=== PATIENT | female | born 1975 ===

== ENCOUNTER 2019-03-31 15:40 | Emergency (ER) | payer SELFPAY ==
--- NOTE | 2019-03-31 15:56 | Event Note ---
ED Screening Note Date of service: 03/31/19 Time: 15:55 ED Screening Note: This is a 43 y.o. F. that presents to the ER with left flank pain for 1 month. PMH of kidney stones Current smoker LMP 03/17/2019 This initial assessment/diagnostic orders/clinical plan/treatment(s) is/are subject to change based on patients health status, clinical progression and re- assessment by fellow clinical providers in the ED. Further treatment and workup at subsequent clinical providers discretion. Patient/guardian urged not to elope from the ED as their condition may be serious if not clinically assessed and managed. Initial orders include: Labs and CT of abdomen pelvis
[2019-03-31 16:47] LABS: Basophils # (Auto) 0.1 K/mm3 (0.0-0.1); Basophils % (Auto) 0.8 % (0.0-1.8); Eosinophils # (Auto) 0.1 K/mm3 (0.0-0.4); Eosinophils % (Auto) 1.3 % (0.0-4.3); Hematocrit 41.2 % (30.3-42.9); Hemoglobin 13.7 gm/dl (10.1-14.3); Lymphocytes # (Auto) 3.3 K/mm3 (1.2-5.4); Lymphocytes % (Auto) 36.8 % (13.4-35.0); Mean Corpuscular HGB Conc 33 % (30-34); Mean Corpuscular Volume 94 fl (79-97); Monocytes # (Auto) 0.6 K/mm3 (0.0-0.8); Monocytes % (Auto) 6.5 % (0.0-7.3); Platelet Count 347 K/mm3 (140-440); Red Blood Count 4.39 M/mm3 (3.65-5.03)
[2019-03-31 17:10] LABS: Bilirubin,Urine NEG (Negative); Blood,Urine SM (Negative); Color,Urine Straw (Yellow); Mucus,Urine FEW /HPF; Protein,Urine <15 mg/dL mg/dL (Negative); Urobilinogen,Urine < 2.0 mg/dL (<2.0)
[2019-03-31 17:19] LABS: Alanine Aminotransferase 19 units/L (7-56); Albumin 4.3 g/dL (3.9-5); BUN/Creatinine Ratio 10; Blood Urea Nitrogen 5 mg/dL (7-17); Calcium 9.1 mg/dL (8.4-10.2); Hemolysis Index 25
--- NOTE | 2019-03-31 18:50 | Cat Scan Report ---
CT abdomen pelvis wo con INDICATION: Left flank pain. TECHNIQUE: All CT scans at this location are performed using the following dose modulation technique: Automated exposure control. Helical slices were obtained through the abdomen and pelvis. No contrast is adminis tered. COMPARISON: None available. FINDINGS: Abdomen: No acute abnormality is seen in the lung bases. No acute abnormality seen in the liver, sple en, pancreas, and adrenal glands. 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 There is a cystic structure in the mid right kidney which is half filled with stones. This could repr esent stones within cyst. This could represent a calyceal cyst or diverticulum partially filled with stones. There is no hydronephrosis. No ureteral calculi are seen. The appendix is unremarkable. The bowel is unremarkable. There is no obstruction, inflammation, or free air. Pelvis: There is no inflammatory change. There are no abnormal fluid collections. No adenopathy is se en. On review of bone windows, no acute osseous abnormalities are seen. IMPRESSION: 1. There is a 2 cm cystic structure in the right kidney which is half filled with stones. This could represent calyceal cyst or diverticulum partially filled with stones. There are no ureteral calculi. There is no hydronephrosis. There is no obstruction, inflammation, or free air. Signer Name: Micky Cantrell MD Signed: 03/31/2019 6:46 PM Workstation Name: [id number]
[2019-03-31] MEDS ORDERED: TORADOL IV ONE (19:41)
[2019-03-31] MEDS ORDERED: ZOFRAN IV ONE (19:41)
--- NOTE | 2019-03-31 19:46 | Emergency Department Report ---
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 presents for left flank pain x 1 month, pt has hx of renal stones, there is no dysuria , no hematuria, no fever or chills no n/v . Pain is described as 5/10 aching intermittent. pt is tolerating po intake without n/v , voiding without difficulty. MD Complaint: flank pain Onset/Timin -: month(s) Location: L flank Radiation: L flank Migration to: L flank Severity: moderate Severity scale (0 -10): 5 Quality: aching Consistency: intermittent Improves With: nothing Worsens With: nothing Associated Symptoms: denies: nausea, vomiting, diarrhea, fever, chills, dysuria, melena, hematuria - Related Data LMP (females 10-50): last week Previous Rx's Medication Instructions Recorded Last Taken Type Ketorolac [Toradol] 10 mg PO Q6H PRN #12 tablet 03/31/19 Unknown Rx Allergies Allergy/AdvReac Type Severity Reaction Status Date / Time No Known Allergies Allergy Unverified 03/31/19 15:40 ED Review of Systems ROS: Stated complaint: ABD PAIN Other details as noted in HPI Constitutional: denies: chills, fever Eyes: denies: eye pain, eye discharge, vision change ENT: denies: ear pain, throat pain Respiratory: denies: cough, shortness of breath, wheezing Cardiovascular: denies: chest pain, palpitations Endocrine: no symptoms reported Gastrointestinal: abdominal pain (flank pain ). denies: nausea, vomiting, diarrhea Genitourinary: denies: urgency, dysuria, discharge Musculoskeletal: back pain (left flank) Skin: denies: rash, lesions Neurological: denies: headache, weakness, paresthesias Psychiatric: denies: anxiety, depression Hematological/Lymphatic: denies: easy bleeding, easy bruising ED Past Medical Hx - Past Medical History Previous Medical History?: Yes Hx Kidney Stones: Yes - Surgical History Past Surgical History?: No - Social History Smoking Status: Current Every Day Smoker Substance Use Type: None - Medications Home Medications: Home Medications Medication Instructions Recorded Confirmed Last Taken Type Ketorolac [Toradol] 10 mg PO Q6H PRN #12 tablet 03/31/19 Unknown Rx ED Physical Exam - General Limitations: Language Barrier General appearance: alert, in no apparent distress - Head Head exam: Present: atraumatic, normocephalic - Eye Eye exam: Present: normal appearance, PERRL, EOMI Pupils: Present: normal accommodation - ENT ENT exam: Present: mucous membranes moist - Neck Neck exam: Present: normal inspection, full ROM. Absent: thyromegaly - Respiratory Respiratory exam: Present: normal lung sounds bilaterally. Absent: respiratory distress, wheezes, stridor, chest wall tenderness - Cardiovascular Cardiovascular Exam: Present: regular rate, normal rhythm, normal heart sounds. Absent: systolic murmur, diastolic murmur, rubs, gallop - GI/Abdominal GI/Abdominal exam: Present: soft, normal bowel sounds. Absent: distended, tenderness, guarding, rebound, rigid, bruit, hernia - Extremities Exam Extremities exam: Present: normal inspection, full ROM, normal capillary refill. Absent: tenderness, pedal edema - Back Exam Back exam: Present: normal inspection, full ROM. Absent: tenderness, CVA tenderness (R), CVA tenderness (L), muscle spasm, rash noted - Neurological Exam Neurological exam: Present: alert, oriented X3, CN II-XII intact, normal gait - Psychiatric Psychiatric exam: Present: normal affect, normal mood - Skin Skin exam: Present: warm, dry, intact, normal color. Absent: rash ED Course Vital Signs 03/31/19 15:44 Temperature 97.9 F Pulse Rate 78 Respiratory 18 Rate Blood Pressure 112/60 O2 Sat by Pulse 97 Oximetry ED Medical Decision Making - Lab Data Result diagrams: 03/31/19 16:11 03/31/19 16:11 Labs 03/31/19 03/31/19 03/31/19 16:11 16:11 16:11 WBC 8.9 RBC 4.39 Hgb 13.7 Hct 41.2 MCV 94 MCH 31 MCHC 33 RDW 15.0 Plt Count 347 Lymph % (Auto) 36.8 H Holmes % (Auto) 6.5 Eos % (Auto) 1.3 Baso % (Auto) 0.8 Lymph # 3.3 Holmes # 0.6 Eos # 0.1 Baso # 0.1 Seg Neutrophils % 54.6 Seg Neutrophils # 4.8 Sodium 141 Potassium 4.3 Chloride 107.1 H Carbon Dioxide 20 L Anion Gap 18 BUN 5 L Creatinine 0.5 L Estimated GFR > 60 BUN/Creatinine Ratio 10 Glucose 97 Calcium 9.1 Total Bilirubin 0.20 AST 18 ALT 19 Alkaline Phosphatase 64 Total Protein 6.8 Albumin 4.3 Albumin/Globulin Ratio 1.7 HCG, Qual Negative Urine Color Urine Turbidity Urine pH Ur Specific Goodman Urine Protein Urine Glucose (UA) Urine Ketones Urine Blood Urine Nitrite Urine Bilirubin Urine Urobilinogen Ur Leukocyte Esterase Urine WBC (Auto) Urine RBC (Auto) U Epithel Cells (Auto) Urine Mucus 03/31/19 16:30 WBC RBC Hgb Hct MCV MCH MCHC RDW Plt Count Lymph % (Auto) Holmes % (Auto) Eos % (Auto) Baso % (Auto) Lymph # Holmes # Eos # Baso # Seg Neutrophils % Seg Neutrophils # Sodium Potassium Chloride Carbon Dioxide Anion Gap BUN Creatinine Estimated GFR BUN/Creatinine Ratio Glucose Calcium Total Bilirubin AST ALT Alkaline Phosphatase Total Protein Albumin Albumin/Globulin Ratio HCG, Qual Urine Color Straw Urine Turbidity Clear Urine pH 8.0 H Ur Specific Goodman 1.003 Urine Protein <15 mg/dl Urine Glucose (UA) Neg Urine Ketones Neg Urine Blood Sm Urine Nitrite Neg Urine Bilirubin Neg Urine Urobilinogen < 2.0 Ur Leukocyte Esterase Neg Urine WBC (Auto) 1.0 Urine RBC (Auto) 4.0 U Epithel Cells (Auto) < 1.0 Urine Mucus Few - Radiology Data Radiology results: report reviewed, image reviewed Patient: AURY SULLIVAN MR#: [id number] : 1975 Acct:[id number] Age/Sex: 43 / F ADM Date: 03/31/19 Loc: ED Attending Dr: Ordering Physician: RENZO ARVIZU Date of Service: 03/31/19 Procedure(s): CT abdomen pelvis wo con Accession Number(s): [id number] cc: RENZO ARVIZU CT abdomen pelvis wo con INDICATION: Left flank pain. TECHNIQUE: All CT scans at this location are performed using the following dose modulation technique: Automated exposure control. Helical slices were obtained through the abdomen and pelvis. No contrast is administered. COMPARISON: None available. FINDINGS: Abdomen: No acute abnormality is seen in the lung bases. No acute abnormality seen in the liver, spleen, pancreas, and adrenal glands. 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 There is a cystic structure in the mid right kidney which is half filled with stones. This could represent stones within cyst. This could represent a calyceal cyst or diverticulum partially filled with stones. There is no hydronephrosis. No ureteral calculi are seen. The appendix is unremarkable. The bowel is unremarkable. There is no obstruction, inflammation, or free air. Pelvis: There is no inflammatory change. There are no abnormal fluid collections. No adenopathy is seen. On review of bone windows, no acute osseous abnormalities are seen. IMPRESSION: 1. There is a 2 cm cystic structure in the right kidney which is half filled with stones. This could represent calyceal cyst or diverticulum partially filled with stones. There are no ureteral calculi. There is no hydronephrosis. There is no obstruction, inflammation, or free air. Signer Name: Micky Cantrell MD Signed: 03/31/2019 6:46 PM Workstation Name: [id number] Transcribed By: SS Dictated By: Micky Cantrell MD Electronically Authenticated By: Micky Cantrell MD Signed Date/Time: 03/31/191845 DD/ 40 - Medical Decision Making this is a right renal cyst with stones, there is no hematuria , fever , chills, no n/v , pt voiding problem, plan toradol prn, follow up with urology in 2-3 days pt given follow with Urology Dr. Denis pt and family members verbalized agreement and understanding of discharge plan. Critical care attestation.: If time is entered above; I have spent that time in minutes in the direct care of this critically ill patient, excluding procedure time. ED Disposition Clinical Impression: Renal cyst, Renal stones Disposition: - TO HOME OR SELFCARE Is pt being admited?: No Does the pt Need Aspirin: No Condition: Stable Instructions: Flank Pain (ED), Kidney Stones (ED) Prescriptions: Ketorolac [Toradol] 10 mg PO Q6H PRN #12 tablet PRN Reason: Pain Referrals: FRANDY DENIS MD [Staff Physician] - 3-5 Days Forms: Work/School Release Form(ED) Time of Disposition: 19:50 Print Language: MACEDONIAN
[2019-03-31] MEDS ORDERED: ULTRAM PO ONE (20:03)
[2019-03-31] MEDS ORDERED: ZOFRAN ODT PO ONE (20:04)
[2019-03-31 20:49] VITALS: BP 112/68
== END 2019-03-31 20:50 | disposition home or self-care (01) ==
LOC: ED 15:40
DX: N20.0 Calculus of kidney (principal); F17.200 Nicotine dependence, unspecified, uncomplicated
CPT/HCPCS: 36415; 74176; 80053; 81001; 84703; 85025; 99284; J1885; J2405; Q0162